=== PATIENT | male | born 1970 | race Caucasian/White ===

== ENCOUNTER 2017-02-07 10:16 | Day surgery (SDC) | payer BC ==
[~2017-02-07] VITALS: Ht 172.7 cm; Wt 83.9 kg
[~2017-02-07 10:16] MED LIST: WELLBUTRIN XL150 MG PO
[2017-02-07 11:01] LABS: HEMATOCRIT 51.2 % (38.0-50.0); MCHC 32.6 G/DL (30.0-36.0); MCV 88.9 FL (86-99); MEAN PLAT.VOLUME 9.4 uM^3 (9.0-12.4); PLATELET COUNT 273 K/uL (156-360); RBC DIS.WIDTH-CV 12.5 % (11.8-14.6); RBC DIS.WIDTH-SD 40.7 % (39-53); RED BLOOD COUNT 5.76 M/uL (4.00-5.50); WHITE BLOOD COUNT 7.8 K/uL (4.1-10.2)
[2017-02-07 11:14] VITALS: BP 114/69
[2017-02-07 11:36] LABS: ALKALINE PHOSPHATASE 72 IU/L (3-129); ANION GAP 10 MEQ/L (2-14); CHLORIDE 104 MEQ/L (99-109); GFR ESTIMATE (CALCULATED) > 59 mL/min/; GLUCOSE 94 mg/dL (70-99); POTASSIUM 4.2 MEQ/L (3.7-5.4); SAMPLE HEMOLYSIS CHECK 0; SAMPLE ICTERIC CHECK 0; SAMPLE LIPEMIA CHECK 0; SODIUM 143 MEQ/L (136-147); TOTAL BILIRUBIN 0.8 MG/DL (0.0-1.0); UREA NITROGEN (BUN) 19 mg/dL (9-23)
[2017-02-07 14:25] VITALS: BP 115/74
[2017-02-07 14:59] VITALS: BP 111/87
== END 2017-02-07 15:15 | disposition home or self-care (01) ==
LOC: SDC 10:16
PROVIDERS: Ophthalmology
DX: H33.41 Traction detachment of retina, right eye (principal); Z87.891 Personal history of nicotine dependence
CPT/HCPCS: 80053; 85027; 93005; J0690; J1100; J1885; J2250; J2795; J3010; J3300